=== PATIENT | male | born 1980 | race Caucasian/White ===

== ENCOUNTER 2017-03-26 12:46 | Emergency (ER) | payer OTHER ==
[~2017-03-26] VITALS: Wt 107.0 kg
[~2017-03-26 12:46] MED LIST: AMOXICILLIN500 MG PO; BACTRIM DS 8001 TA1 PO; CIPRO500 MG PO; CLARITIN10 MG PO; CYCLOBENZAPRINE10 MG PO; FLEXERIL10 MG PO; FLONASE ALLERG9.9 ML NAS; HYDROCODONE BIT1 T11 PO; IBU-8800 MG PO; KEFLEX500 MG PO; KENALOG 0.1%80 GM T; MOTRIN800 MG PO; Motrin,Rufen800 MG PO; NKHM; NORCO 5-325 TA1 EACH PO; PHENERGAN25 M1 PO; PREDNISONE10 MG PO; ROBITUSSIN AC 110 ML PO; ROBITUSSIN DM120 ML PO; TYLENOL W/CODEI1 TA2 PO; ULTRAM50 MG PO; VIBRAMYCIN100 MG PO; VICODIN 5/500 505 MG PO; VICODIN 500 MG-1 TAB PO; VICODIN ES 7501 TAB PO; VISTARIL50 MG PO; ZOFRAN ODT4 MG SL; ZOFRAN ODT8 MG PO
== END 2017-03-26 14:07 | disposition home or self-care (01) ==
LOC: ED 12:46
DX: H61.22 Impacted cerumen, left ear (principal); G43.909 Migraine, unspecified, not intractable, without status migrainosus; Z79.899 Other long term (current) drug therapy

== ENCOUNTER 2017-07-06 17:39 | Emergency (ER) | payer OTHER ==
[~2017-07-06] VITALS: Wt 104.3 kg
[2017-07-06 18:31] LABS: BASO % 0.6 % (0.0-1.0); EOS % 0.8 % (1.0-4.0); HEMATOCRIT 45.7 % (42.0-52.0); HEMOGLOBIN 15.3 g/dl (14.0-18.0); LYMPH # 1.1 10*3/uL (1.3-4.4); LYMPH % 23.5 % (27.0-41.0); MEAN CELL VOLUME 92.1 fl (80.0-94.0); MEAN CORPUSCULAR HGB 30.8 pg (27.0-31.0); MEAN CORPUSCULAR HGB CONC 33.5 g/dl (33.0-37.0); MEAN PLATELET VOLUME 10.2 fl (9.6-12.3); MONO # 0.8 10*3/uL (0.1-1.0); MONO % 15.8 % (3.0-9.0); NEUT # 2.8 10*3/uL (2.3-7.9); NEUT % 59.1 % (47.0-73.0); PLATELET COUNT AUTOMATED 161 10*3/uL (130-400); RED BLOOD COUNT 4.96 10*6/uL (4.50-5.90); RED CELL DISTRI WIDTH 13.3 % (0-14.5); WHITE BLOOD COUNT 4.8 10*3/uL (4.8-10.8)
[2017-07-06 18:49] LABS: ALBUMIN 3.9 gm/dl (3.1-4.5); ALKALINE PHOSPHATASE 82 U/L (45-117); BUN 10 mg/dl (7-24); CHLORIDE 105 mmol/L (98-107); POTASSIUM 3.7 mmol/L (3.5-5.1); SGOT/AST 17 IU/L (3-35); SGPT/ALT 31 U/L (12-78); SODIUM 139 mmol/L (136-145); TOTAL PROTEIN 7.7 gm/dL (6.4-8.2)
[2017-07-06] MEDS ORDERED: CHERATUSSIN AC118 M1 PO (19:45)
[2017-07-06] MEDS ORDERED: PREDNISONE20 M1 PO (19:48)
== END 2017-07-06 20:04 | disposition home or self-care (01) ==
LOC: ED 17:39
PROVIDERS: Nurse Practitioner
DX: B34.8 Other viral infections of unspecified site (principal); R05 Cough; R09.89 Other specified symptoms and signs involving the circulatory and respiratory systems; R50.9 Fever, unspecified; F17.200 Nicotine dependence, unspecified, uncomplicated

== ENCOUNTER 2018-01-14 11:00 | Emergency (ER) | payer OTHER ==
[~2018-01-14] VITALS: Ht 182.8 cm; Wt 106.6 kg
[~2018-01-14 11:00] MED LIST changes: +CHERATUSSIN AC118 M1 PO; +PREDNISONE20 M1 PO
[2018-01-14] MEDS ORDERED: DEBROX 15 ML 1515 ML OT (12:29)
== END 2018-01-14 12:35 | disposition home or self-care (01) ==
LOC: ED 11:00
DX: H61.22 Impacted cerumen, left ear (principal)

== ENCOUNTER 2018-04-17 12:34 | Emergency (ER) | payer OTHER ==
[~2018-04-17] VITALS: Ht 182.8 cm; Wt 110.2 kg
[~2018-04-17 12:34] MED LIST changes: +DEBROX 15 ML 1515 ML OT
[2018-04-17] MEDS ORDERED: MEDROL DOSEPAK4 MG PO (15:35)
[2018-04-17] MEDS ORDERED: CYCLOBENZAPRINE5 M3 PO (15:35)
== END 2018-04-17 15:50 | disposition home or self-care (01) ==
LOC: ED 12:34
DX: S39.012A Strain of muscle, fascia and tendon of lower back, initial encounter (principal); F17.200 Nicotine dependence, unspecified, uncomplicated; Z79.899 Other long term (current) drug therapy; X58.XXXA Exposure to other specified factors, initial encounter; Y93.89 Activity, other specified; Y92.89 Other specified places as the place of occurrence of the external cause; Y99.8 Other external cause status

== ENCOUNTER 2018-06-04 08:49 | Emergency (ER) | payer OTHER ==
[~2018-06-04] VITALS: Ht 182.8 cm; Wt 108.9 kg
[~2018-06-04 08:49] MED LIST changes: +CYCLOBENZAPRINE5 M3 PO; +MEDROL DOSEPAK4 MG PO
[2018-06-04] MEDS ORDERED: CORTISPORIN SUS10 ML OT (09:43)
== END 2018-06-04 09:56 | disposition home or self-care (01) ==
LOC: ED 08:49
DX: H61.22 Impacted cerumen, left ear (principal); H60.92 Unspecified otitis externa, left ear; F17.200 Nicotine dependence, unspecified, uncomplicated

== ENCOUNTER 2018-07-08 12:11 | Emergency (ER) | payer OTHER ==
[~2018-07-08] VITALS: Ht 182.8 cm; Wt 106.6 kg
[~2018-07-08 12:11] MED LIST changes: +CORTISPORIN SUS10 ML OT
[2018-07-08] MEDS ORDERED: AMOXICILLIN500 M2 PO (12:22)
[2018-07-08] MEDS ORDERED: CORTISPORIN SUS10 ML OT (12:22)
[2018-07-08] MEDS ORDERED: PREDNISONE20 M1 PO (12:22)
== END 2018-07-08 12:40 | disposition home or self-care (01) ==
LOC: ED 12:11
DX: H60.92 Unspecified otitis externa, left ear (principal); H66.92 Otitis media, unspecified, left ear

== ENCOUNTER 2019-03-05 20:03 | Emergency (ER) | payer OTHER ==
[~2019-03-05] VITALS: Ht 182.8 cm; Wt 108.9 kg
[~2019-03-05 20:03] MED LIST changes: +AMOXICILLIN500 M2 PO
== END 2019-03-05 23:09 | disposition home or self-care (01) ==
LOC: ED 20:03
DX: S29.011A Strain of muscle and tendon of front wall of thorax, initial encounter (principal); F17.200 Nicotine dependence, unspecified, uncomplicated; X58.XXXA Exposure to other specified factors, initial encounter; Y93.89 Activity, other specified; Y92.89 Other specified places as the place of occurrence of the external cause; Y99.0 Civilian activity done for income or pay

== ENCOUNTER 2020-08-24 12:16 | Emergency (ER) | payer OTHER ==
[~2020-08-24] VITALS: Wt 105.2 kg
[2020-08-24] MEDS ORDERED: AUGMENTIN 875875 MG PO ×2 (12:45)
== END 2020-08-24 12:57 | disposition home or self-care (01) ==
LOC: ED 12:16
DX: H66.92 Otitis media, unspecified, left ear (principal); H91.91 Unspecified hearing loss, right ear; G43.909 Migraine, unspecified, not intractable, without status migrainosus; F17.200 Nicotine dependence, unspecified, uncomplicated

== ENCOUNTER 2020-09-08 21:27 | Emergency (ER) | payer OTHER ==
[~2020-09-08] VITALS: Ht 182.8 cm; Wt 111.1 kg
[~2020-09-08 21:27] MED LIST changes: +AUGMENTIN 875875 MG PO
[2020-09-08] MEDS ORDERED: ZOFRAN4 MG PO (23:54)
== END 2020-09-09 00:13 | disposition home or self-care (01) ==
LOC: ED 21:27
DX: K52.9 Noninfective gastroenteritis and colitis, unspecified (principal); F17.200 Nicotine dependence, unspecified, uncomplicated

== ENCOUNTER → 2021-09-08 | Outpatient (CLI) | payer OTHER ==
[~2021-09-08] MED LIST changes: +ZOFRAN4 MG PO
[2021-09-08 11:21] LABS: BASO % 0.6 % (0.0-1.0); EOS # 0.2 10*3/uL (0.0-0.4); EOS % 4.3 % (1.0-4.0); HEMATOCRIT 50.2 % (42.0-52.0); LYMPH # 1.4 10*3/uL (1.3-4.4); LYMPH % 28.8 % (27.0-41.0); MEAN CELL VOLUME 93.7 fl (80.0-94.0); MEAN CORPUSCULAR HGB 30.6 pg (27.0-31.0); MEAN CORPUSCULAR HGB CONC 32.7 g/dl (33.0-37.0); MEAN PLATELET VOLUME 9.9 fl (9.6-12.3); MONO # 0.4 10*3/uL (0.1-1.0); MONO % 8.9 % (3.0-9.0); NEUT # 2.8 10*3/uL (2.3-7.9); PLATELET COUNT AUTOMATED 214 10*3/uL (130-400); RED BLOOD COUNT 5.36 10*6/uL (4.50-5.90); RED CELL DISTRI WIDTH 13.3 % (0-14.5); RETICULOCYTE % 1.55 % (0.50-2.50); WHITE BLOOD COUNT 4.9 10*3/uL (4.8-10.8)
[2021-09-08 11:28] LABS: BILIRUBIN Negative (Negative); BLOOD Negative (Negative); CLARITY Clear (Clear); COLOR Yellow (Yellow); GLUCOSE Negative (Negative); KETONE Negative (Negative); LEUKO ESTERASE Trace (Negative); NITRITE Negative (Negative); PH 6.5 (4.5-8.0); SPECIFIC GRAVITY 1.025 (1.001-1.030)
[2021-09-08 11:41] LABS: BUN 12 mg/dl (7-24); CHLORIDE 109 mmol/L (98-107); CHOLESTEROL 186 mg/dL (<200); CREATININE 0.86 mg/dL (0.70-1.30); GAMMA GLUTAMYL TRANSPEPTIDASE 43 U/L (15-85); IRON 122 ug/dL (65-175); POTASSIUM 4.3 mmol/L (3.5-5.1); SGOT/AST 29 IU/L (3-35); SGPT/ALT 75 U/L (12-78); SODIUM 139 mmol/L (136-145); TRIGLYCERIDES 216 mg/dl (<150)
[2021-09-08 11:50] LABS: ALKALINE PHOSPHATASE 85 U/L (45-117); LDL CHOLESTEROL 113 mg/dL (9-159); THYROID STIM HORMONE (HS) 0.972 uIU/ml (0.358-4.75); TOTAL IRON BINDING CAPACITY 406 ug/dl (250-450); TOTAL PROTEIN 7.9 gm/dL (6.4-8.2)
[2021-09-08 11:56] LABS: FERRITIN 172.2 ng/mL (22.0-322.0); VITAMIN D, 25-HYDROXY 16.3 ng/mL (30-100)
[2021-09-09 08:07] LABS: HEP B CORE AB, IGM Negative (Negative); HEPATITIS B SURFACE AG Negative (Negative); HEPATITIS C VIRUS ANTIBODY <0.1 s/co (0.0-0.9)
== END | disposition home or self-care (01) ==
LOC: LAB 10:55
PROVIDERS: ATTEND Family Medicine
DX: R53.83 Other fatigue (principal); R79.89 Other specified abnormal findings of blood chemistry; E78.5 Hyperlipidemia, unspecified; E55.9 Vitamin D deficiency, unspecified

== ENCOUNTER 2022-06-13 07:20 | Emergency (ER) | payer OTHER ==
[~2022-06-13] VITALS: Ht 182.8 cm; Wt 111.6 kg
[2022-06-13] MEDS ORDERED: ONDANSETRON4 MG SL (09:06)
== END 2022-06-13 09:13 | disposition home or self-care (01) ==
LOC: ED 07:20
DX: B34.9 Viral infection, unspecified (principal); Z20.822 Contact with and (suspected) exposure to COVID-19

== ENCOUNTER 2023-01-25 10:49 | Emergency (ER) | payer OTHER ==
[~2023-01-25] VITALS: Ht 182.8 cm; Wt 110.2 kg
[~2023-01-25 10:49] MED LIST changes: +ONDANSETRON4 MG SL; +PREDNISONE50 MG PO
[2023-01-25] MEDS ORDERED: NAPROXEN500 MG PO (13:16)
== END 2023-01-25 13:24 | disposition home or self-care (01) ==
LOC: ED 10:49
DX: M54.50 Low back pain, unspecified (principal)

== ENCOUNTER → 2023-04-17 | Outpatient (CLI) | payer OTHER ==
[~2023-04-17] MED LIST changes: +AMOX-CLAV 875-1 EACH PO; +CEPHALEXIN500 M1 PO; +LEVOFLOXACIN750 M2 PO; +NAPROXEN500 MG PO; +PERCOCET 5-3251 EACH PO
== END | disposition home or self-care (01) ==
LOC: ORTHO 01:37
PROVIDERS: ATTEND Orthopaedic Surgery
DX: S62.521D Displaced fracture of distal phalanx of right thumb, subsequent encounter for fracture with routine healing (principal); S62.524D Nondisplaced fracture of distal phalanx of right thumb, subsequent encounter for fracture with routine healing; X58.XXXD Exposure to other specified factors, subsequent encounter

== ENCOUNTER 2023-05-26 14:23 | Emergency (ER) | payer OTHER ==
[~2023-05-26] VITALS: Wt 106.6 kg
[2023-05-26] MEDS ORDERED: MELOXICAM15 MG PO ×3 (15:24→16:41)
== END 2023-05-26 16:55 | disposition home or self-care (01) ==
LOC: ED 14:23
DX: S09.90XA Unspecified injury of head, initial encounter (principal); M54.2 Cervicalgia; M54.50 Low back pain, unspecified; G43.909 Migraine, unspecified, not intractable, without status migrainosus; Z98.890 Other specified postprocedural states; F17.200 Nicotine dependence, unspecified, uncomplicated; F10.10 Alcohol abuse, uncomplicated; V49.9XXA Car occupant (driver) (passenger) injured in unspecified traffic accident, initial encounter; Y93.89 Activity, other specified; Y92.410 Unspecified street and highway as the place of occurrence of the external cause; Y99.8 Other external cause status

== ENCOUNTER → 2023-06-22 | Outpatient (CLI) | payer OTHER ==
[~2023-06-22] MED LIST changes: +MELOXICAM15 MG PO
== END | disposition home or self-care (01) ==
LOC: RAD 14:28
PROVIDERS: ATTEND Family Medicine
DX: M47.812 Spondylosis without myelopathy or radiculopathy, cervical region (principal)

== ENCOUNTER 2024-04-02 17:39 | Emergency (ER) | payer OTHER ==
[~2024-04-02] VITALS: Ht 182.8 cm; Wt 83.9 kg
[2024-04-02] MEDS ORDERED: SODIUM CHLORIDE 0.9% 500 ML IV ONE (18:20)
[2024-04-02] MEDS ORDERED: IBUPROFEN 200 MG TAB PO ONE (18:45)
[2024-04-02] MEDS ORDERED: CIPROFLOXACIN H10 ML OPH (18:48)
== END 2024-04-02 19:40 | disposition home or self-care (01) ==
LOC: ED 17:39
DX: T15.92XA Foreign body on external eye, part unspecified, left eye, initial encounter (principal); G43.909 Migraine, unspecified, not intractable, without status migrainosus; F17.200 Nicotine dependence, unspecified, uncomplicated; F10.10 Alcohol abuse, uncomplicated; Z98.890 Other specified postprocedural states

== ENCOUNTER 2024-06-30 11:07 | Inpatient (IN) | payer OTHER ==
[~2024-06-30] VITALS: Ht 182.9 cm; Wt 129.5 kg
[~2024-06-30 11:07] MED LIST changes: +CIPROFLOXACIN H10 ML OPH
[2024-06-30 11:14] VITALS: BP 138/86
[2024-06-30] MEDS ORDERED: SODIUM CHLORIDE 0.9% 1,000 ML IV ONE (11:25)
[2024-06-30 11:43] LABS: BASO % 0.3 % (0.0-1.0); EOS # 0.2 10*3/uL (0.0-0.4); EOS % 1.9 % (1.0-4.0); HEMATOCRIT 47.5 % (42.0-52.0); MEAN CELL VOLUME 93.3 fl (80.0-94.0); MEAN CORPUSCULAR HGB 30.3 pg (27.0-31.0); MEAN CORPUSCULAR HGB CONC 32.4 g/dl (33.0-37.0); MEAN PLATELET VOLUME 9.5 fl (9.6-12.3); MONO # 0.8 10*3/uL (0.1-1.0); MONO % 8.7 % (3.0-9.0); NEUT # 6.6 10*3/uL (2.3-7.9); NEUT % 72.8 % (47.0-73.0); PLATELET COUNT AUTOMATED 248 10*3/uL (130-400); RED BLOOD COUNT 5.09 10*6/uL (4.50-5.90)
[2024-06-30] MEDS ORDERED: ACETAMINOPHEN 325 MG TAB PO ONE (12:00)
[2024-06-30 12:03] LABS: BUN 7 mg/dl (9-23); CHLORIDE 105 mmol/L (98-107); POTASSIUM 3.6 mmol/L (3.4-5.1)
[2024-06-30] MEDS ORDERED: Ketorolac Tromethamine 15 MG/ML VIAL IV ONE (13:05)
[2024-06-30] MEDS ORDERED: Ceftriaxone Sodium 1 GM/10 ML SYR IV ONE (13:05)
[2024-06-30] MEDS ORDERED: AZITHROMYCIN 250 ML IV ONE (13:05)
[2024-06-30] MEDS ORDERED: FLUTICASONE PROPIONATE Nasal 16 Gm spray NAS SCH (14:00)
[2024-06-30] MEDS ORDERED: Ondansetron Hydrochloride 4 MG/2 ML VIAL IV PRN (14:25)
[2024-06-30] MEDS ORDERED: ACETAMINOPHEN 325 MG TAB PO PRN (14:25)
[2024-06-30] MEDS ORDERED: BISACODYL 5 MG TAB PO PRN (14:25)
[2024-06-30] MEDS ORDERED: Albuterol Sulf/Ipratropium 3 ML VIAL NEB SCH (14:34)
[2024-06-30 18:24] VITALS: BP 115/69
[2024-06-30] MEDS ORDERED: GUAIFENESIN 600 MG TAB ER PO SCH (22:00)
[2024-06-30 22:31] VITALS: BP 127/61
[2024-07-01 07:14] LABS: ALKALINE PHOSPHATASE 81 U/L (46-116); BUN 8 mg/dl (9-23); CHLORIDE 108 mmol/L (98-107); CHOLESTEROL 119 mg/dL (<200); FREE T4 1.19 ng/dl (0.89-1.76); LDL CHOLESTEROL 72 mg/dL (9-159); POTASSIUM 4.2 mmol/L (3.4-5.1); SGPT/ALT 27 U/L (5-49); TOTAL PROTEIN 6.8 gm/dL (6.0-8.0); TRIGLYCERIDES 95 mg/dl (<150)
[2024-07-01 07:15] LABS: BASO % 0.5 % (0.0-1.0); EOS # 0.3 10*3/uL (0.0-0.4); HEMATOCRIT 42.4 % (42.0-52.0); MEAN CELL VOLUME 95.9 fl (80.0-94.0); MEAN CORPUSCULAR HGB 31.4 pg (27.0-31.0); MEAN CORPUSCULAR HGB CONC 32.8 g/dl (33.0-37.0); MEAN PLATELET VOLUME 10.1 fl (9.6-12.3); MONO # 0.7 10*3/uL (0.1-1.0); MONO % 9.7 % (3.0-9.0); NEUT # 4.3 10*3/uL (2.3-7.9); NEUT % 57.4 % (47.0-73.0); PLATELET COUNT AUTOMATED 231 10*3/uL (130-400); RED BLOOD COUNT 4.42 10*6/uL (4.50-5.90); RED CELL DISTRI WIDTH 14.1 % (0-14.5); WHITE BLOOD COUNT 7.4 10*3/uL (4.8-10.8)
[2024-07-01 08:03] LABS: VITAMIN D, 25-HYDROXY 16.9 ng/mL (30-100)
[2024-07-01 08:23] VITALS: BP 132/64
[2024-07-01] MEDS ORDERED: Enoxaparin Sodium 40 MG/0.4 ML SYR SC SCH (10:00)
[2024-07-01 10:57] VITALS: BP 111/59
[2024-07-01 12:00] VITALS: BP 119/50
[2024-07-01] MEDS ORDERED: AZITHROMYCIN 250 ML IV SCH (13:00)
[2024-07-01] MEDS ORDERED: Ceftriaxone Sodium 1 GM,IV 1 EA in SYRINGE INFUSION 10 ML IV SCH (14:00)
[2024-07-01] MEDS ORDERED: ZITHROMAX250 MG PO (15:26)
[2024-07-01] MEDS ORDERED: MUCINEX1200 M1 PO (15:26)
== END 2024-07-01 18:19 | disposition home or self-care (01) | DRG 178 ==
LOC: ED 11:07 → EDHOLD 13:19 → 4E 13:19 → EDHOLD 14:31 → 4E 07-01 08:15
PROVIDERS: Nurse Practitioner Family; Registered Nurse; ADMIT Internal Medicine; ATTEND Internal Medicine
DX: J15.69 Pneumonia due to other Gram-negative bacteria (principal); Z68.45 Body mass index [BMI] 70 or greater, adult; F17.210 Nicotine dependence, cigarettes, uncomplicated; G43.909 Migraine, unspecified, not intractable, without status migrainosus; E66.01 Morbid (severe) obesity due to excess calories; Z20.822 Contact with and (suspected) exposure to COVID-19; Z79.01 Long term (current) use of anticoagulants; Z79.2 Long term (current) use of antibiotics; Z71.6 Tobacco abuse counseling; Z82.49 Family history of ischemic heart disease and other diseases of the circulatory system; Z83.3 Family history of diabetes mellitus

== ENCOUNTER 2025-01-06 13:34 | Emergency (ER) | payer SELFPAY ==
[~2025-01-06] VITALS: Ht 182.8 cm; Wt 113.4 kg
[~2025-01-06 13:34] MED LIST changes: +MUCINEX1200 M1 PO; +ZITHROMAX250 MG PO
[2025-01-06] MEDS ORDERED: SODIUM CHLORIDE 0.9% 1,000 ML IV ONE (15:45)
[2025-01-06 15:51] LABS: BASO # 0.1 10*3/uL (0.0-0.1); BASO % 0.8 % (0.0-1.0); EOS # 0.4 10*3/uL (0.0-0.4); EOS % 6.6 % (1.0-4.0); MEAN CELL VOLUME 95.0 fl (80.0-94.0); MEAN CORPUSCULAR HGB 30.5 pg (27.0-31.0); MEAN PLATELET VOLUME 9.4 fl (9.6-12.3); MONO # 0.5 10*3/uL (0.1-1.0); MONO % 7.9 % (3.0-9.0); NEUT # 3.4 10*3/uL (2.3-7.9); NEUT % 54.5 % (47.0-73.0); NUCLEATED RED BLOOD CELL 0.0 % (0.0-0.0); NUCLEATED RED BLOOD CELL 0.0 10*3/uL (0.0-0.0); PLATELET COUNT AUTOMATED 239 10*3/uL (130-400); RED CELL DISTRI WIDTH 13.8 % (0-14.5)
[2025-01-06 16:11] LABS: BUN 10 mg/dl (9-23)
[2025-01-06] MEDS ORDERED: Amoxicillin/Clavulanate Pota 875 MG TAB PO ONE (17:55)
[2025-01-06] MEDS ORDERED: ALBUTEROL 8 GM INHALER INH ONE (17:55)
[2025-01-06] MEDS ORDERED: Albuterol Sulf/Ipratropium 3 ML VIAL NEB ONE (17:55)
[2025-01-06] MEDS ORDERED: AMOX-CLAV 875-1 EACH PO (17:59)
== END 2025-01-06 18:53 | disposition home or self-care (01) ==
LOC: ED 13:34
PROVIDERS: Nurse Practitioner
DX: J06.9 Acute upper respiratory infection, unspecified (principal); G43.909 Migraine, unspecified, not intractable, without status migrainosus; F17.200 Nicotine dependence, unspecified, uncomplicated; Z20.822 Contact with and (suspected) exposure to COVID-19; Z79.899 Other long term (current) drug therapy; Z98.890 Other specified postprocedural states